=== PATIENT | male | born 1965 | race Caucasian/White ===

== ENCOUNTER 2020-03-02 18:17 | Emergency (ER) | payer BC ==
[~2020-03-02] VITALS: Ht 180.3 cm; Wt 75.0 kg
--- NOTE | 2020-03-02 18:55 | NUR ---
assumed care of pt. report from Rachel LUCERO. pt here for back pain after moving a rock while camping. pt is currently laying in position of comfort on his tomach and states that it is too painful to roll over. 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 pt denies numbness/tingling to extremities. no loss of bowel/bladder control. no resp. distress famil at bedside
[2020-03-02] MEDS ORDERED: KETOROLAC 30 MG/1 ML IVPush ONE (19:00)
[2020-03-02] MEDS ORDERED: HYDROmorphone 2 MG/ML, 1ML IVPush PRN (19:00)
[2020-03-02] MEDS ORDERED: METHOCARBAMOL 750 MG TABLET PO ONE (19:00)
[2020-03-02] MEDS ORDERED: ONDANSETRON 2MG/ML, 2ML IVPush ONE (19:00)
[2020-03-02] MEDS ORDERED: HYDROmorphone 2 MG/ML, 1ML ONE (19:14)
[2020-03-02] MEDS ORDERED: ONDANSETRON 2MG/ML, 2ML ONE (19:15)
[2020-03-02] MEDS ORDERED: METHOCARBAMOL 750 MG TABLET ONE (19:15)
[2020-03-02] MEDS ORDERED: KETOROLAC 30 MG/1 ML ONE (19:15)
--- NOTE | 2020-03-02 19:35 | NUR ---
pt has been medicated per order. well tolerated pt to RAD via gurney
--- NOTE | 2020-03-02 20:08 | NUR ---
pt reports that he hsa some relief of pain after meds and that he has increased mobility. warm blankets to back for comfort. pt is able to lay on his back or his side now
[2020-03-02 21:18] VITALS: BP 117/75
== END 2020-03-02 21:23 | disposition home or self-care (01) ==
LOC: ED 20:08
DX: S39.012A Strain of muscle, fascia and tendon of lower back, initial encounter (principal); X50.9XXA Other and unspecified overexertion or strenuous movements or postures, initial encounter; Y93.89 Activity, other specified; Y92.89 Other specified places as the place of occurrence of the external cause; Y99.8 Other external cause status
CPT/HCPCS: 72110; 96374; 96375; 99284; J1170; J1885; J2405